=== PATIENT | male | born 1940 | race African-American/Black ===

== ENCOUNTER 2016-12-03 19:01 | Inpatient (IN) | payer MEDICARE, MEDICAID ==
[~2016-12-03] VITALS: Ht 172.7 cm; Wt 78.0 kg
[2016-12-03] MEDS ORDERED: SODIUM CHLORIDE 0.9% 500 ML IV ONE (19:21)
[2016-12-03 19:42] LABS: BASOPHILS % 0.7 % (0.0-2.0); EOSINOPHILS % 5.9 % (0.0-5.0); LYMPHOCYTES % 34.2 % (20.0-50.0); MEAN CORPUSCULAR HEMOGLOBIN 31.3 pg (28.0-32.0); MEAN CORPUSCULAR VOLUME 88.7 fL (80.0-94.0); MEAN PLATELET VOLUME 8.3 fl (7.4-10.4); MONOCYTES % 9.8 % (2.0-8.0); NEUTROPHILS % 49.4 % (40.0-76.0); PLATELET 140 x1000/uL (130-400); RED BLOOD CELL COUNT 3.83 mill/uL (4.7-6.1); RED CELL DISTRIBUTION WIDTH 13.4 % (11.6-14.6)
[2016-12-03 19:54] LABS: CARBON DIOXIDE 22 mEq/L (21-32); CHLORIDE 107 mEq/L (98-107); CREATINE KINASE 269 IU/L (39-308); ETHANOL BLOOD < 10 mg/dL; TROPONIN I < 0.02 ng/mL (0.00-0.04)
[2016-12-03] MEDS ORDERED: ASPIRIN 325MG EC TABLET PO ONE (21:15)
[2016-12-03 21:20] LABS: T4 FREE 0.74 ng/dL (0.76-1.46)
[2016-12-04] VITALS (7 sets, daily range): BP systolic 127–153; BP diastolic 63–79
[2016-12-04 00:50] LABS: CLARITY URINE CLEAR (CLEAR); COLOR URINE YELLOW (YELLOW); GLUCOSE URINE NEGATIVE (NEGATIVE); KETONES URINE NEGATIVE (NEGATIVE); LEUKOCYTE ESTERASE URINE NEGATIVE (NEGATIVE); NITRITE URINE NEGATIVE (NEGATIVE); OCCULT BLOOD URINE NEGATIVE (NEGATIVE); PH URINE 5.5 (4.5-8.0); PROTEIN URINE TRACE (NEGATIVE); SPECIFIC GRAVITY URINE 1.012 (1.005-1.030); UROBILINOGEN URINE 0.2 E.U./dL (0.2-1.0)
[2016-12-04 01:03] LABS: *AMPHETAMINES SCREEN URINE NEGATIVE (NEGATIVE); *BARBITURATES SCREEN URINE NEGATIVE (NEGATIVE); *BENZODIAZEPINES SCREEN URINE NEGATIVE (NEGATIVE); *COCAINE SCREEN URINE NEGATIVE (NEGATIVE); CANNABINOID URINE SCREEN NEGATIVE (NEGATIVE); METHADONE URINE SCREEN NEGATIVE (NEGATIVE); OPIATES URINE SCREEN NEGATIVE (NEGATIVE); PHENCYCLIDINE URINE SCREEN NEGATIVE (NEGATIVE)
[2016-12-04] MEDS ORDERED: ONDANSETRON HCL 4MG/2ML VIAL IV PRN (01:45)
[2016-12-04] MEDS ORDERED: DEXTROSE 50% WATER 50ML SYRINGE IV PRN (01:45)
[2016-12-04] MEDS ORDERED: SODIUM CHLORIDE 0.9% INJ 3ML FLUSH IVF SCH (01:45)
[2016-12-04 02:37] LABS: BASOPHILS % 0.4 % (0.0-2.0); EOSINOPHILS % 0.8 % (0.0-5.0); HEMATOCRIT. 35.8 % (42.0-52.0); HEMOGLOBIN. 12.3 g/dL (14.0-18.0); LYMPHOCYTES % 26.5 % (20.0-50.0); MEAN CORPUSCULAR HEMOGLOBIN 30.7 pg (28.0-32.0); MEAN CORPUSCULAR VOLUME 89.6 fL (80.0-94.0); MEAN PLATELET VOLUME 8.7 fl (7.4-10.4); MONOCYTES % 6.4 % (2.0-8.0); NEUTROPHILS % 65.9 % (40.0-76.0); PLATELET 138 x1000/uL (130-400); RED CELL DISTRIBUTION WIDTH 12.8 % (11.6-14.6)
[2016-12-04 02:51] LABS: CARBON DIOXIDE 26 mEq/L (21-32); CHLORIDE 108 mEq/L (98-107); CREATINE KINASE 244 IU/L (39-308); CREATINE KINASE MB FRACTION 2.7 ng/mL (0.5-3.6); TROPONIN I < 0.02 ng/mL (0.00-0.04)
[2016-12-04] MEDS: SODIUM CHLORIDE 0.9% 1,000 ML IV SCH ×2 (03:25→17:34)
[2016-12-04] MEDS: BLOOD SUGAR DIAGNOSTIC STRIP TEST SCH ×4 (05:38→21:22)
[2016-12-04] MEDS: INSULIN LISPRO 100 UNITS/ML SUBCUT SCH ×4 (05:47→21:00)
[2016-12-04] MEDS: SODIUM CHLORIDE 0.9% INJ 3ML FLUSH IVF SCH ×2 (05:47→12:19)
[2016-12-04] MEDS: MORPHINE SULFATE 2 MG/ML CPJ (NOT FOR IM USE) IV PRN ×2 (06:39→13:12)
[2016-12-04] MEDS: ASPIRIN 81MG TABLET PO SCH (09:13)
[2016-12-04] MEDS: AMLODIPINE 5MG TABLET PO SCH (09:15)
[2016-12-04 10:21] LABS: CREATINE KINASE 216 IU/L (39-308); CREATINE KINASE MB FRACTION 2.5 ng/mL (0.5-3.6); TROPONIN I < 0.02 ng/mL (0.00-0.04)
[2016-12-04] MEDS ORDERED: INFLUENZA VIRUS VACCINE 0.5ML SYR IM ONE (12:00)
[2016-12-04] MEDS ORDERED: PNEUMOCOCCAL 23-VAL P-SAC VAC 0.5 ML IM ONE (12:00)
[2016-12-05] VITALS: BP 149/79
[2016-12-05 04:00] VITALS: BP 152/84
[2016-12-05] MEDS: INSULIN LISPRO 100 UNITS/ML SUBCUT SCH (06:52)
[2016-12-05] MEDS: SODIUM CHLORIDE 0.9% INJ 3ML FLUSH IVF SCH ×2 (06:55→06:56)
[2016-12-05 08:00] VITALS: BP 168/82
[2016-12-05] MEDS: ASPIRIN 81MG TABLET PO SCH (09:07)
[2016-12-05] MEDS: AMLODIPINE 5MG TABLET PO SCH (09:07)
[2016-12-05] MEDS ORDERED: SODIUM CHLORIDE 0.9% 1,000 ML IV SCH (10:15)
[2016-12-05] MEDS ORDERED: REGADENOSON 0.4 MG/5 ML IV NR (10:15)
[2016-12-05 12:00] VITALS: BP 171/83
[2016-12-05] MEDS ORDERED: REGADENOSON 0.4 MG/5 ML IV ONE (12:33)
[2016-12-05 16:00] VITALS: BP 153/81
[2016-12-05 16:35] LABS: CREATINE KINASE 160 IU/L (39-308); CREATINE KINASE MB FRACTION 1.6 ng/mL (0.5-3.6); TROPONIN I < 0.02 ng/mL (0.00-0.04)
[2016-12-05 16:39] LABS: T4 FREE 0.73 ng/dL (0.76-1.46)
[2016-12-05 17:13] VITALS: BP 153/81
[2016-12-05] MEDS ORDERED: ENOXAPARIN 30MG/0.3ML SYR SUBCUT SCH (20:00)
[2016-12-06] MEDS ORDERED: ASPIRIN 81MG TABLET PO SCH (09:00)
== END 2016-12-05 18:20 | disposition home or self-care (01) | DRG 74 ==
LOC: ER 19:01 → 8WST 22:42 → ENRESERV 22:55 → 8WST 12-04 00:50
PROVIDERS: ADMIT Hospitalist; ATTEND Hospitalist
DX: G90.8 Other disorders of autonomic nervous system (principal); N17.9 Acute kidney failure, unspecified; E11.649 Type 2 diabetes mellitus with hypoglycemia without coma; D64.9 Anemia, unspecified; R55 Syncope and collapse; M94.0 Chondrocostal junction syndrome [Tietze]; R07.9 Chest pain, unspecified; E78.5 Hyperlipidemia, unspecified; I10 Essential (primary) hypertension
CPT/HCPCS: 36415; 70450; 71010; 78452; 80048; 80053; 80061; 80305; 81001; 82550; 82553; 82962; 83036; 83880; 84439; 84443; 84481; 84484; 85025; 85379; 93005; 93017; 93306; 96360; 96361; 99285; A9500; G0482; J1815; J2270; J2785; J7030; J7040

== ENCOUNTER 2018-11-07 09:21 | Inpatient (IN) | payer MEDICARE, MEDICAID ==
[~2018-11-07] VITALS: Ht 167.6 cm; Wt 79.8 kg
[2018-11-07] MEDS ORDERED: TETANUS, DIPHTHERIA, PERTUSSIS VAC/PF 0.5ML (>7YR OLD) IM ONE (10:45)
[2018-11-07] MEDS ORDERED: ACETAMINOPHEN WITH CODEINE 300/30MG TABLET PO ONE (10:45)
[2018-11-07 12:03] LABS: BASOPHILS % 0.5 % (0.0-2.0); EOSINOPHILS % 1.1 % (0.0-5.0); HEMATOCRIT. 28.3 % (42.0-52.0); HEMOGLOBIN. 9.8 g/dL (14.0-18.0); LYMPHOCYTES % 14.7 % (20.0-50.0); MEAN CORPUSCULAR HEMOGLOBIN 31.7 pg (28.0-32.0); MEAN CORPUSCULAR VOLUME 91.2 fL (80.0-94.0); MEAN PLATELET VOLUME 9.5 fl (7.4-10.4); MONOCYTES % 9.2 % (2.0-8.0); NEUTROPHILS % 74.5 % (40.0-76.0); PLATELET 136 x1000/uL (130-400)
[2018-11-07 12:11] LABS: CHLORIDE 103 mEq/L (98-107); PROTHROMBIN TIME 10.7 sec (9.6-11.0)
[2018-11-07] MEDS ORDERED: HYDROCODONE/ACETAMINOPHEN 5/325MG TABLET PO ONE (14:30)
[2018-11-07] MEDS ORDERED: FUROSEMIDE 40MG/4ML VIAL IVP ONE (15:30)
[2018-11-07] MEDS ORDERED: ASPIRIN 81MG TABLET PO ONE (15:30)
[2018-11-07 16:45] VITALS: BP 142/64
[2018-11-07 17:00] VITALS: BP 142/64
[2018-11-07] MEDS ORDERED: GUAIFENESIN 200MG/10ML SUGAR FREE UDC PO PRN (19:00)
[2018-11-07] MEDS ORDERED: ACETAMINOPHEN 650MG/20.3ML UDC GT PRN (19:00)
[2018-11-07] MEDS ORDERED: DEXTROSE 50% WATER 50ML SYRINGE IV PRN (19:00)
[2018-11-07] MEDS ORDERED: AMLO10TA4 MT (19:00)
[2018-11-07] MEDS ORDERED: DULO30CA52 MT (19:00)
[2018-11-07] MEDS ORDERED: HYDR-4135 PO (19:00)
[2018-11-07] MEDS ORDERED: DOCUSATE SODIUM 100MG CAPSULE PO PRN (19:00)
[2018-11-07] MEDS ORDERED: ASPI-1393 PO (19:00)
[2018-11-07] MEDS ORDERED: COR6 MT (19:00)
[2018-11-07] MEDS ORDERED: MECL-109 PO (19:00)
[2018-11-07] MEDS ORDERED: ACETAMINOPHEN 650MG SUPP PR PRN (19:00)
[2018-11-07] MEDS ORDERED: ONDANSETRON HCL 4MG/2ML INJ IV PRN (19:00)
[2018-11-07] MEDS ORDERED: PREG75CA MT (19:00)
[2018-11-07] MEDS: ACETAMINOPHEN 325MG TABLET PO PRN (20:11)
[2018-11-07 20:38] VITALS: BP 165/81
[2018-11-07] MEDS: FUROSEMIDE 40MG TABLET PO SCH ×2 (21:00→21:22)
[2018-11-07] MEDS ORDERED: INSULIN LISPRO 100 UNITS/ML SUBCUT SCH (21:00)
[2018-11-07] MEDS ORDERED: BLOOD SUGAR DIAGNOSTIC STRIP TEST SCH (21:00)
[2018-11-07] MEDS: HYDROCODONE/ACETAMINOPHEN 5/325MG TABLET PO PRN (21:19)
[2018-11-07] MEDS: ATORVASTATIN CALCIUM 20MG TABLET PO SCH (21:20)
[2018-11-07] MEDS: PREGABALIN 75MG CAPSULE PO SCH (21:20)
[2018-11-07] MEDS: CARVEDILOL 6.25 MG TABLET PO SCH (21:22)
[2018-11-07] MEDS: ENOXAPARIN 30MG/0.3ML SYR SUBCUT SCH (21:22)
[2018-11-07] MEDS: FAMOTIDINE 20MG TABLET PO SCH (21:29)
[2018-11-07] MEDS: BLOOD SUGAR DIAGNOSTIC STRIP TEST SCH (21:29)
[2018-11-07] MEDS: INSULIN LISPRO 100 UNITS/ML SUBCUT SCH (21:55)
[2018-11-07] MEDS ORDERED: DIPHENHYDRAMINE 25MG CAPSULE PO PRN ×2 (22:15)
[2018-11-07 23:43] LABS: CREATINE KINASE 121 IU/L (39-308)
[2018-11-07 23:46] LABS: CREATINE KINASE MB FRACTION 2.1 ng/mL (0.5-3.6)
[2018-11-08] VITALS (8 sets, daily range): BP systolic 107–160; BP diastolic 60–76
[2018-11-08] MEDS: BLOOD SUGAR DIAGNOSTIC STRIP TEST SCH ×4 (06:24→21:29)
[2018-11-08] MEDS: INSULIN LISPRO 100 UNITS/ML SUBCUT SCH ×4 (07:45→21:26)
[2018-11-08] MEDS: FUROSEMIDE 40MG TABLET PO SCH (09:11)
[2018-11-08] MEDS: ASPIRIN 81MG TABLET PO SCH (09:11)
[2018-11-08] MEDS: CARVEDILOL 6.25 MG TABLET PO SCH ×2 (09:12→21:27)
[2018-11-08] MEDS: ACETAMINOPHEN 325MG TABLET PO PRN (09:17)
[2018-11-08 10:24] LABS: BASOPHILS % 0.3 % (0.0-2.0); EOSINOPHILS % 0.8 % (0.0-5.0); HEMATOCRIT. 27.3 % (42.0-52.0); HEMOGLOBIN. 9.3 g/dL (14.0-18.0); LYMPHOCYTES % 13.4 % (20.0-50.0); MEAN CORPUSCULAR HEMOGLOBIN 31.3 pg (28.0-32.0); MEAN CORPUSCULAR VOLUME 91.8 fL (80.0-94.0); MEAN PLATELET VOLUME 10.1 fl (7.4-10.4); MONOCYTES % 10.3 % (2.0-8.0); NEUTROPHILS % 75.2 % (40.0-76.0); PLATELET 139 x1000/uL (130-400); RED BLOOD CELL COUNT 2.98 mill/uL (4.7-6.1); RED CELL DISTRIBUTION WIDTH 13.7 % (11.6-14.6)
[2018-11-08 10:44] LABS: CHLORIDE 102 mEq/L (98-107)
[2018-11-08 10:51] LABS: PHOSPHORUS 4.1 mg/dL (2.5-4.9)
[2018-11-08 10:52] LABS: LDL CHOLESTEROL 37 mg/dL (5-100)
[2018-11-08 10:54] LABS: CREATINE KINASE 108 IU/L (39-308); CREATINE KINASE MB FRACTION 1.3 ng/mL (0.5-3.6); HDL CHOLESTEROL 41 mg/dL (40-59)
[2018-11-08] MEDS ORDERED: SODIUM POLYSTYRENE SULFONATE 15 G/60 ML BOT PO NR (14:30)
[2018-11-08] MEDS: HYDRALAZINE HCL 50MG TABLET PO SCH ×2 (15:07→21:27)
[2018-11-08] MEDS: DOCUSATE SODIUM 100MG CAPSULE PO SCH (17:45)
[2018-11-08] MEDS: FUROSEMIDE 40MG/4ML VIAL IVP SCH (17:47)
[2018-11-08] MEDS: CITRIC ACID/SODIUM CITRATE SOLN 30ML UDC PO SCH (17:57)
[2018-11-08] MEDS: INSULIN GLARGINE UD 100 UNITS/ML SYR SUBCUT SCH (17:59)
[2018-11-08] MEDS: FAMOTIDINE 20MG TABLET PO SCH (19:51)
[2018-11-08] MEDS: PREGABALIN 75MG CAPSULE PO SCH (21:26)
[2018-11-08] MEDS: ENOXAPARIN 30MG/0.3ML SYR SUBCUT SCH (21:27)
[2018-11-08] MEDS: ATORVASTATIN CALCIUM 20MG TABLET PO SCH (21:27)
[2018-11-09] VITALS (7 sets, daily range): BP systolic 117–182; BP diastolic 48–69
[2018-11-09 03:05] LABS: CLARITY URINE CLOUDY (CLEAR); COLOR URINE YELLOW (YELLOW); KETONES URINE NEGATIVE (NEGATIVE); LEUKOCYTE ESTERASE URINE NEGATIVE (NEGATIVE); NITRITE URINE NEGATIVE (NEGATIVE); OCCULT BLOOD URINE NEGATIVE (NEGATIVE); PROTEIN URINE 3+ (NEGATIVE); UROBILINOGEN URINE 0.2 E.U./dL (0.2-1.0)
[2018-11-09 03:13] LABS: *AMPHETAMINES SCREEN URINE NEGATIVE (NEGATIVE); *BENZODIAZEPINES SCREEN URINE NEGATIVE (NEGATIVE); *COCAINE SCREEN URINE NEGATIVE (NEGATIVE)
[2018-11-09 03:14] LABS: *BARBITURATES SCREEN URINE NEGATIVE (NEGATIVE); CANNABINOID URINE SCREEN NEGATIVE (NEGATIVE); METHADONE URINE SCREEN NEGATIVE (NEGATIVE); OPIATES URINE SCREEN PRESUMTIVE POSITIVE (NEGATIVE); PHENCYCLIDINE URINE SCREEN NEGATIVE (NEGATIVE)
[2018-11-09] MEDS: BLOOD SUGAR DIAGNOSTIC STRIP TEST SCH ×4 (06:26→21:00)
[2018-11-09] MEDS: FUROSEMIDE 40MG/4ML VIAL IVP SCH ×2 (06:41→17:42)
[2018-11-09 06:53] LABS: BASOPHILS % 0.3 % (0.0-2.0); HEMATOCRIT. 27.1 % (42.0-52.0); HEMOGLOBIN. 9.5 g/dL (14.0-18.0); LYMPHOCYTES % 19.7 % (20.0-50.0); MEAN CORPUSCULAR HEMOGLOBIN 31.8 pg (28.0-32.0); MEAN PLATELET VOLUME 10.5 fl (7.4-10.4); MONOCYTES % 9.8 % (2.0-8.0); NEUTROPHILS % 68.2 % (40.0-76.0); PLATELET 138 x1000/uL (130-400); RED BLOOD CELL COUNT 2.98 mill/uL (4.7-6.1); RED CELL DISTRIBUTION WIDTH 13.3 % (11.6-14.6)
[2018-11-09] MEDS: INSULIN LISPRO 100 UNITS/ML SUBCUT SCH ×4 (07:31→21:23)
[2018-11-09] MEDS: CITRIC ACID/SODIUM CITRATE SOLN 30ML UDC PO SCH ×2 (08:28→17:42)
[2018-11-09] MEDS: FAMOTIDINE 20MG TABLET PO SCH (08:28)
[2018-11-09] MEDS: CARVEDILOL 6.25 MG TABLET PO SCH ×2 (08:29→20:54)
[2018-11-09] MEDS: HYDRALAZINE HCL 50MG TABLET PO SCH (08:29)
[2018-11-09] MEDS: DOCUSATE SODIUM 100MG CAPSULE PO SCH ×2 (08:29→17:42)
[2018-11-09] MEDS: ASPIRIN 81MG TABLET PO SCH (08:29)
[2018-11-09] MEDS: INSULIN GLARGINE UD 100 UNITS/ML SYR SUBCUT SCH (10:01)
[2018-11-09] MEDS: HYDROCODONE/ACETAMINOPHEN 5/325MG TABLET PO PRN ×2 (10:07→18:02)
[2018-11-09] MEDS: ENOXAPARIN 30MG/0.3ML SYR SUBCUT SCH (20:52)
[2018-11-09] MEDS: HYDRALAZINE HCL 100MG TABLET PO SCH (20:53)
[2018-11-09] MEDS: ATORVASTATIN CALCIUM 20MG TABLET PO SCH (20:53)
[2018-11-09] MEDS: PREGABALIN 75MG CAPSULE PO SCH (23:35)
[2018-11-10] VITALS: BP 142/60
[2018-11-10 04:43] VITALS: BP 162/73
[2018-11-10] MEDS: FUROSEMIDE 40MG/4ML VIAL IVP SCH ×2 (06:41→17:52)
[2018-11-10] MEDS: BLOOD SUGAR DIAGNOSTIC STRIP TEST SCH ×4 (06:50→20:39)
[2018-11-10 07:10] LABS: BASOPHILS % 0.4 % (0.0-2.0); EOSINOPHILS % 3.5 % (0.0-5.0); HEMATOCRIT. 26.8 % (42.0-52.0); HEMOGLOBIN. 9.3 g/dL (14.0-18.0); LYMPHOCYTES % 26.3 % (20.0-50.0); MEAN CORPUSCULAR HEMOGLOBIN 31.2 pg (28.0-32.0); MEAN CORPUSCULAR VOLUME 90.1 fL (80.0-94.0); MEAN PLATELET VOLUME 10.2 fl (7.4-10.4); MONOCYTES % 11.6 % (2.0-8.0); NEUTROPHILS % 58.2 % (40.0-76.0); PLATELET 152 x1000/uL (130-400); RED BLOOD CELL COUNT 2.97 mill/uL (4.7-6.1)
[2018-11-10] MEDS: INSULIN LISPRO 100 UNITS/ML SUBCUT SCH ×4 (07:30→20:41)
[2018-11-10 08:00] VITALS: BP_SYST 159; BP_SYST 160; BP_DIAS 67
[2018-11-10] MEDS: DOCUSATE SODIUM 100MG CAPSULE PO SCH ×2 (09:00→17:00)
[2018-11-10] MEDS: HYDRALAZINE HCL 100MG TABLET PO SCH ×2 (09:08→20:39)
[2018-11-10] MEDS: ASPIRIN 81MG TABLET PO SCH (09:08)
[2018-11-10] MEDS: CARVEDILOL 6.25 MG TABLET PO SCH ×2 (09:08→20:39)
[2018-11-10] MEDS: CITRIC ACID/SODIUM CITRATE SOLN 30ML UDC PO SCH ×2 (09:08→17:52)
[2018-11-10] MEDS: FAMOTIDINE 20MG TABLET PO SCH (09:08)
[2018-11-10] MEDS: INSULIN GLARGINE UD 100 UNITS/ML SYR SUBCUT SCH (11:03)
[2018-11-10 12:00] VITALS: BP 126/56
[2018-11-10] MEDS ORDERED: POTASSIUM CHLORIDE 20MEQ TABLET SR PO SCH (12:00)
[2018-11-10] MEDS: HYDROCODONE/ACETAMINOPHEN 5/325MG TABLET PO PRN (13:23)
[2018-11-10 15:11] VITALS: BP 159/67
[2018-11-10 19:58] VITALS: BP 145/52
[2018-11-10] MEDS: ENOXAPARIN 30MG/0.3ML SYR SUBCUT SCH (20:38)
[2018-11-10] MEDS: PREGABALIN 75MG CAPSULE PO SCH (20:39)
[2018-11-10] MEDS: ATORVASTATIN CALCIUM 20MG TABLET PO SCH (20:39)
[2018-11-11 00:14] VITALS: BP 143/51
[2018-11-11 04:02] VITALS: BP 142/52
[2018-11-11] MEDS: FUROSEMIDE 40MG/4ML VIAL IVP SCH (06:37)
[2018-11-11] MEDS: BLOOD SUGAR DIAGNOSTIC STRIP TEST SCH ×2 (06:37→12:20)
[2018-11-11 06:54] LABS: BASOPHILS % 0.3 % (0.0-2.0); EOSINOPHILS % 3.1 % (0.0-5.0); HEMATOCRIT. 28.9 % (42.0-52.0); LYMPHOCYTES % 28.3 % (20.0-50.0); MEAN CORPUSCULAR HEMOGLOBIN 31.4 pg (28.0-32.0); MEAN CORPUSCULAR VOLUME 91.2 fL (80.0-94.0); MEAN PLATELET VOLUME 9.9 fl (7.4-10.4); MONOCYTES % 10.1 % (2.0-8.0); NEUTROPHILS % 58.2 % (40.0-76.0); PLATELET 159 x1000/uL (130-400); RED BLOOD CELL COUNT 3.17 mill/uL (4.7-6.1); RED CELL DISTRIBUTION WIDTH 13.3 % (11.6-14.6)
[2018-11-11 06:55] LABS: PHOSPHORUS 4.8 mg/dL (2.5-4.9)
[2018-11-11] MEDS: INSULIN LISPRO 100 UNITS/ML SUBCUT SCH ×2 (06:59→13:25)
[2018-11-11 08:02] VITALS: BP 158/62
[2018-11-11] MEDS: FAMOTIDINE 20MG TABLET PO SCH (08:53)
[2018-11-11] MEDS: ASPIRIN 81MG TABLET PO SCH (08:53)
[2018-11-11] MEDS: HYDRALAZINE HCL 100MG TABLET PO SCH (08:53)
[2018-11-11] MEDS: DOCUSATE SODIUM 100MG CAPSULE PO SCH (08:53)
[2018-11-11] MEDS: CARVEDILOL 6.25 MG TABLET PO SCH (08:53)
[2018-11-11] MEDS ORDERED: SPIRONOLACTONE 25MG TABLET PO SCH (09:00)
[2018-11-11] MEDS: INSULIN GLARGINE UD 100 UNITS/ML SYR SUBCUT SCH (11:12)
[2018-11-11 12:13] VITALS: BP 153/58
[2018-11-11] MEDS ORDERED: ATOR20TA PO (12:37)
[2018-11-11] MEDS ORDERED: SPIR25TA PO (12:37)
[2018-11-11] MEDS ORDERED: LANTUSUD SUBCUT (12:37)
[2018-11-11] MEDS ORDERED: HYDR100T26 PO (12:37)
[2018-11-11] MEDS ORDERED: INSLIS SUBCUT (12:37)
[2018-11-11] MEDS ORDERED: FURO-151 MT (12:37)
[2018-11-11 14:09] VITALS: BP 153/58
[2018-11-11 16:14] VITALS: BP 149/63
== END 2018-11-11 16:40 | disposition home health service (06) | DRG 291 ==
LOC: ER 09:21 → 6WST 13:36 → ENRESERV 14:48 → 6WST 16:57
PROVIDERS: ADMIT Family Medicine; ATTEND Family Medicine
DX: I13.0 Hypertensive heart and chronic kidney disease with heart failure and stage 1 through stage 4 chronic kidney disease, or unspecified chronic kidney disease (principal); I50.33 Acute on chronic diastolic (congestive) heart failure; E87.1 Hypo-osmolality and hyponatremia; N18.4 Chronic kidney disease, stage 4 (severe); E87.2 Acidosis; I95.1 Orthostatic hypotension; D63.1 Anemia in chronic kidney disease; E04.2 Nontoxic multinodular goiter; E11.22 Type 2 diabetes mellitus with diabetic chronic kidney disease; E03.9 Hypothyroidism, unspecified; E11.319 Type 2 diabetes mellitus with unspecified diabetic retinopathy without macular edema; E11.40 Type 2 diabetes mellitus with diabetic neuropathy, unspecified; E11.51 Type 2 diabetes mellitus with diabetic peripheral angiopathy without gangrene; E78.00 Pure hypercholesterolemia, unspecified; E78.5 Hyperlipidemia, unspecified; I25.10 Atherosclerotic heart disease of native coronary artery without angina pectoris; K21.9 Gastro-esophageal reflux disease without esophagitis; S00.81XA Abrasion of other part of head, initial encounter; W01.0XXA Fall on same level from slipping, tripping and stumbling without subsequent striking against object, initial encounter; M10.9 Gout, unspecified; E87.6 Hypokalemia; M19.90 Unspecified osteoarthritis, unspecified site; Z79.899 Other long term (current) drug therapy; Z82.49 Family history of ischemic heart disease and other diseases of the circulatory system; Z86.73 Personal history of transient ischemic attack (TIA), and cerebral infarction without residual deficits; Z79.82 Long term (current) use of aspirin; Z86.718 Personal history of other venous thrombosis and embolism; Z79.84 Long term (current) use of oral hypoglycemic drugs
CPT/HCPCS: 36415; 70486; 71045; 76770; 80048; 80061; 80305; 81003; 82533; 82550; 82553; 82962; 83735; 84100; 84443; 84484; 86850; 86900; 93005; 93970; 96374; 97161; 99291; J1650; J1815; J1940

== ENCOUNTER 2019-02-03 03:49 | Inpatient (IN) | payer MEDICARE, MEDICAID ==
[~2019-02-03] VITALS: Ht 167.6 cm; Wt 76.7 kg
[~2019-02-03 03:49] MED LIST: AMLO10TA4 MT; ASPI-1393 PO; ATOR20TA PO; COR6 MT; DULO30CA52 MT; FURO-151 MT; HYDR100T26 PO; INSLIS SUBCUT; LANTUSUD SUBCUT; MECL-109 PO; PREG75CA MT; SPIR25TA PO
[2019-02-03] MEDS ORDERED: FUROSEMIDE 40MG/4ML VIAL IV ONE (04:45)
[2019-02-03] MEDS ORDERED: NITROGLYCERIN OINT 1GM/INCH UDPKT TD ONE (04:45)
[2019-02-03 05:28] LABS: BASOPHILS % 0.5 % (0.0-2.0); EOSINOPHILS % 1.3 % (0.0-5.0); HEMATOCRIT. 28.2 % (42.0-52.0); HEMOGLOBIN. 9.6 g/dL (14.0-18.0); LYMPHOCYTES % 7.8 % (20.0-50.0); MEAN CORPUSCULAR HEMOGLOBIN 30.3 pg (28.0-32.0); MEAN CORPUSCULAR VOLUME 88.9 fL (80.0-94.0); MEAN PLATELET VOLUME 8.4 fl (7.4-10.4); MONOCYTES % 7.5 % (2.0-8.0); NEUTROPHILS % 82.9 % (40.0-76.0); PLATELET 211 x1000/uL (130-400); RED BLOOD CELL COUNT 3.16 mill/uL (4.7-6.1); RED CELL DISTRIBUTION WIDTH 16.1 % (11.6-14.6)
[2019-02-03 05:34] LABS: CHLORIDE 103 mEq/L (98-107)
[2019-02-03 08:30] VITALS: BP 160/68
[2019-02-03] MEDS ORDERED: ONDANSETRON HCL 4MG/2ML INJ IV PRN (08:45)
[2019-02-03] MEDS ORDERED: ACETAMINOPHEN 325MG TABLET PO PRN (08:45)
[2019-02-03] MEDS ORDERED: CLONIDINE 0.1MG TABLET PO PRN (08:45)
[2019-02-03] MEDS ORDERED: DIPHENHYDRAMINE 50MG/ML VIAL IV PRN (08:45)
[2019-02-03] MEDS ORDERED: IPRATROPIUM/ALBUTEROL 0.5-3(2.5)MG/3ML NEB HHN PRN (08:45)
[2019-02-03 09:30] VITALS: BP 148/87
[2019-02-03 09:38] LABS: PHOSPHORUS 3.4 mg/dL (2.5-4.9)
[2019-02-03] MEDS ORDERED: INSU3INS8 SUBCUT (11:03)
[2019-02-03] MEDS ORDERED: INSU100I24 SQ (11:03)
[2019-02-03] MEDS ORDERED: DULA1.5P SQ (11:03)
[2019-02-03] MEDS ORDERED: HYDR100T26 MT (11:03)
[2019-02-03] MEDS ORDERED: ERGO2000 PO (11:03)
[2019-02-03 12:00] VITALS: BP 149/64
[2019-02-03] MEDS ORDERED: INSULIN LISPRO 100 UNITS/ML SUBCUT SCH (12:15)
[2019-02-03] MEDS ORDERED: MECLIZINE 25MG TABLET PO SCH (13:00)
[2019-02-03] MEDS ORDERED: DEXTROSE 50% WATER 50ML SYRINGE IV PRN (13:15)
[2019-02-03] MEDS: ASPIRIN 81MG EC TABLET PO SCH (14:26)
[2019-02-03] MEDS: ENOXAPARIN 30MG/0.3ML SYR SUBCUT SCH (14:28)
[2019-02-03] MEDS: SPIRONOLACTONE 25MG TABLET PO SCH (14:29)
[2019-02-03] MEDS: AMLODIPINE 10MG TABLET PO SCH (14:30)
[2019-02-03] MEDS: FUROSEMIDE 40MG/4ML VIAL IVP SCH ×2 (14:30→18:48)
[2019-02-03] MEDS: FAMOTIDINE 20MG/2ML VIAL IV SCH (14:45)
[2019-02-03 16:00] VITALS: BP 154/65
[2019-02-03] MEDS: BLOOD SUGAR DIAGNOSTIC STRIP TEST SCH ×2 (16:45→21:24)
[2019-02-03] MEDS ORDERED: CARVEDILOL 6.25 MG TABLET PO SCH (17:00)
[2019-02-03] MEDS: INSULIN LISPRO (LOW DOSE) 100 UNITS/ML SUBCUT SCH ×2 (17:15→21:40)
[2019-02-03] MEDS: HYDRALAZINE HCL 100MG TABLET PO SCH (18:47)
[2019-02-03 20:00] VITALS: BP 163/69
[2019-02-03] MEDS ORDERED: AMLODIPINE 5MG TABLET PO SCH (21:00)
[2019-02-03] MEDS: ATORVASTATIN CALCIUM 20MG TABLET PO SCH (21:24)
[2019-02-03] MEDS: CARVEDILOL 3.125 MG TABLET PO SCH (21:24)
[2019-02-04] MEDS: IPRATROPIUM/ALBUTEROL 0.5-3(2.5)MG/3ML NEB HHN SCH ×4 (01:39→21:18)
[2019-02-04 08:00] VITALS: BP 148/65
[2019-02-04] MEDS ORDERED: DULOXETINE HCL 30MG DR CAPSULE PO SCH (09:00)
[2019-02-04] MEDS ORDERED: PREGABALIN 75MG CAPSULE PO SCH (09:00)
[2019-02-04] MEDS: SPIRONOLACTONE 25MG TABLET PO SCH (09:17)
[2019-02-04] MEDS: FAMOTIDINE 20MG/2ML VIAL IV SCH (09:17)
[2019-02-04] MEDS: FUROSEMIDE 40MG/4ML VIAL IVP SCH ×2 (09:17→17:58)
[2019-02-04] MEDS: HYDRALAZINE HCL 100MG TABLET PO SCH ×2 (09:19→21:54)
[2019-02-04] MEDS: AMLODIPINE 10MG TABLET PO SCH (09:19)
[2019-02-04] MEDS: ASPIRIN 81MG EC TABLET PO SCH (09:20)
[2019-02-04] MEDS: CARVEDILOL 3.125 MG TABLET PO SCH (09:20)
[2019-02-04] MEDS: ENOXAPARIN 30MG/0.3ML SYR SUBCUT SCH (09:20)
[2019-02-04] MEDS ORDERED: BISACODYL 10MG SUPP PR SCH (09:30)
[2019-02-04 10:00] LABS: CHLORIDE 104 mEq/L (98-107)
[2019-02-04 10:06] LABS: PHOSPHORUS 4.2 mg/dL (2.5-4.9)
[2019-02-04 10:07] LABS: LDL CHOLESTEROL 33 mg/dL (5-100)
[2019-02-04 10:09] LABS: HDL CHOLESTEROL 46 mg/dL (40-59)
[2019-02-04 10:24] LABS: HEMATOCRIT. 27.7 % (42.0-52.0); HEMOGLOBIN. 9.4 g/dL (14.0-18.0); MEAN CORPUSCULAR VOLUME 88.7 fL (80.0-94.0); MEAN PLATELET VOLUME 8.7 fl (7.4-10.4); PLATELET 220 x1000/uL (130-400); RED BLOOD CELL COUNT 3.12 mill/uL (4.7-6.1); RED CELL DISTRIBUTION WIDTH 15.9 % (11.6-14.6)
[2019-02-04] MEDS: INSULIN GLARGINE UD 100 UNITS/ML SYR SUBCUT SCH (10:44)
[2019-02-04] MEDS: BLOOD SUGAR DIAGNOSTIC STRIP TEST SCH ×4 (11:45→21:55)
[2019-02-04 12:00] VITALS: BP 143/59
[2019-02-04] MEDS: INSULIN LISPRO (LOW DOSE) 100 UNITS/ML SUBCUT SCH ×4 (12:15→21:56)
[2019-02-04] MEDS: METOCLOPRAMIDE HCL 5MG TABLET PO SCH ×3 (12:23→21:53)
[2019-02-04 16:00] VITALS: BP_SYST 121; BP_SYST 129; BP_SYST 133; BP_DIAS 53; BP_DIAS 57; BP_DIAS 59
[2019-02-04 17:16] LABS: PLATELET ESTIMATE NORMAL
[2019-02-04 20:00] VITALS: BP_SYST 145; BP_SYST 146; BP_SYST 147; BP_DIAS 54; BP_DIAS 57; BP_DIAS 58
[2019-02-04] MEDS: CARVEDILOL 6.25 MG TABLET PO SCH (21:54)
[2019-02-04] MEDS: ATORVASTATIN CALCIUM 20MG TABLET PO SCH (21:55)
[2019-02-05] VITALS: BP 122/51
[2019-02-05] MEDS: IPRATROPIUM/ALBUTEROL 0.5-3(2.5)MG/3ML NEB HHN SCH ×3 (01:41→14:42)
[2019-02-05 04:00] VITALS: BP 137/60
[2019-02-05] MEDS: METOCLOPRAMIDE HCL 5MG TABLET PO SCH ×2 (06:15→15:31)
[2019-02-05] MEDS: INSULIN LISPRO (LOW DOSE) 100 UNITS/ML SUBCUT SCH ×2 (06:15→12:15)
[2019-02-05] MEDS: BLOOD SUGAR DIAGNOSTIC STRIP TEST SCH ×2 (06:15→11:45)
[2019-02-05] MEDS: FUROSEMIDE 40MG/4ML VIAL IVP SCH (06:15)
[2019-02-05 07:11] LABS: BASOPHILS % 0.4 % (0.0-2.0); EOSINOPHILS % 2.1 % (0.0-5.0); HEMATOCRIT. 26.9 % (42.0-52.0); HEMOGLOBIN. 9.3 g/dL (14.0-18.0); LYMPHOCYTES % 9.6 % (20.0-50.0); MEAN CORPUSCULAR HEMOGLOBIN 30.1 pg (28.0-32.0); MEAN CORPUSCULAR VOLUME 87.3 fL (80.0-94.0); MEAN PLATELET VOLUME 8.2 fl (7.4-10.4); MONOCYTES % 7.9 % (2.0-8.0); PLATELET 221 x1000/uL (130-400); RED BLOOD CELL COUNT 3.08 mill/uL (4.7-6.1); RED CELL DISTRIBUTION WIDTH 15.8 % (11.6-14.6)
[2019-02-05 07:17] LABS: CHLORIDE 106 mEq/L (98-107)
[2019-02-05 07:22] LABS: PHOSPHORUS 4.9 mg/dL (2.5-4.9)
[2019-02-05 08:00] VITALS: BP 138/60
[2019-02-05] MEDS: AMLODIPINE 10MG TABLET PO SCH (09:00)
[2019-02-05 12:00] VITALS: BP 144/63
[2019-02-05] MEDS ORDERED: COR6 MT (13:09)
[2019-02-05] MEDS: INSULIN GLARGINE UD 100 UNITS/ML SYR SUBCUT SCH (13:30)
[2019-02-05] MEDS: ASPIRIN 81MG EC TABLET PO SCH (15:30)
[2019-02-05] MEDS: FAMOTIDINE 20MG/2ML VIAL IV SCH (15:30)
[2019-02-05] MEDS: CARVEDILOL 6.25 MG TABLET PO SCH (15:30)
[2019-02-05] MEDS: HYDRALAZINE HCL 100MG TABLET PO SCH (15:30)
[2019-02-05] MEDS: ENOXAPARIN 30MG/0.3ML SYR SUBCUT SCH (15:30)
[2019-02-05] MEDS: SPIRONOLACTONE 25MG TABLET PO SCH (15:30)
[2019-02-05 16:00] VITALS: BP 152/64
[2019-02-05 16:17] VITALS: BP 144/63
== END 2019-02-05 17:20 | disposition home or self-care (01) | DRG 291 ==
LOC: ER 03:49 → 5WST 05:12 → EDBD 05:12 → EDBEDREQ 05:18 → EDBEDREQTM 05:18 → ENRESERV 07:35
PROVIDERS: ADMIT Internal Medicine; ATTEND Internal Medicine
DX: I13.0 Hypertensive heart and chronic kidney disease with heart failure and stage 1 through stage 4 chronic kidney disease, or unspecified chronic kidney disease (principal); I50.31 Acute diastolic (congestive) heart failure; J96.00 Acute respiratory failure, unspecified whether with hypoxia or hypercapnia; K56.7 Ileus, unspecified; N18.4 Chronic kidney disease, stage 4 (severe); N17.9 Acute kidney failure, unspecified; E11.22 Type 2 diabetes mellitus with diabetic chronic kidney disease; E11.51 Type 2 diabetes mellitus with diabetic peripheral angiopathy without gangrene; E78.5 Hyperlipidemia, unspecified; E78.00 Pure hypercholesterolemia, unspecified; E11.42 Type 2 diabetes mellitus with diabetic polyneuropathy; M10.9 Gout, unspecified; D64.9 Anemia, unspecified; I25.10 Atherosclerotic heart disease of native coronary artery without angina pectoris; E03.9 Hypothyroidism, unspecified; M81.0 Age-related osteoporosis without current pathological fracture; Z86.718 Personal history of other venous thrombosis and embolism; Z79.899 Other long term (current) drug therapy; Z82.49 Family history of ischemic heart disease and other diseases of the circulatory system; Z93.3 Colostomy status; Z79.82 Long term (current) use of aspirin; Z79.4 Long term (current) use of insulin; Z87.01 Personal history of pneumonia (recurrent)
CPT/HCPCS: 36415; 71045; 74018; 80061; 82962; 83735; 83880; 84100; 84443; 84484; 93005; 93306; 93970; 99291; J1200; J1650; J1815; J1940; J3490; J7620; J8597

== ENCOUNTER 2019-10-03 01:13 | Inpatient (IN) | payer MEDICARE, MEDICAID ==
[~2019-10-03] VITALS: Ht 167.6 cm; Wt 72.6 kg
[~2019-10-03 01:13] MED LIST changes: -ASPI-1393 PO; +ASPI-1497 PO; +DULA1.5P SQ; +ERGO2000 PO; +HYDR100T26 MT; +INSU3INS8 SUBCUT; -MECL-109 PO; -PREG75CA MT
[2019-10-03] MEDS ORDERED: AZITHROMYCIN 500 MG in DEXT 5% WATER 250 ML IV ONE (02:45)
[2019-10-03] MEDS ORDERED: CEFTRIAXONE 1 G PREMIX 50 ML IV ONE (02:45)
[2019-10-03 03:17] LABS: EOSINOPHILS % 4.1 % (0.0-5.0); HEMATOCRIT. 27.4 % (42.0-52.0); HEMOGLOBIN. 9.2 g/dL (14.0-18.0); LYMPHOCYTES % 11.8 % (20.0-50.0); MEAN CORPUSCULAR HEMOGLOBIN 28.9 pg (28.0-32.0); MEAN CORPUSCULAR VOLUME 86.2 fL (80.0-94.0); MONOCYTES % 10.2 % (2.0-8.0); NEUTROPHILS % 72.9 % (40.0-76.0); PLATELET 168 x1000/uL (130-400); RED BLOOD CELL COUNT 3.18 mill/uL (4.7-6.1); RED CELL DISTRIBUTION WIDTH 16.3 % (11.6-14.6)
[2019-10-03 03:20] LABS: CHLORIDE 103 mEq/L (98-107)
[2019-10-03 03:30] LABS: BG CARBOXYHEMOGLOBIN 0.1 % (0.5-1.5); BG DEOXYHEMOGLOBIN 3.6 % (0.0-5.0); BG FRACTION INSPIRED OXYGEN 21; BG HCO3 ACT 16.6 mmol/L (22.0-26.0); BG OXYGEN SATURATION 96.4 % (92.0-98.5); BG OXYHEMOGLOBIN 96.3 % (94.0-97.0); BG PCO2 28.3 mmHg (35.0-45.0); BG PH 7.386 (7.350-7.450); BG PO2 88.5 mmHg (75.0-100.0); BG SAMPLE SITE RIGHT RADIAL; BG VENT MODE ROOM AIR
[2019-10-03 04:48] LABS: CLARITY URINE CLEAR (CLEAR); COLOR URINE YELLOW (YELLOW); KETONES URINE NEGATIVE (NEGATIVE); LEUKOCYTE ESTERASE URINE NEGATIVE (NEGATIVE); NITRITE URINE NEGATIVE (NEGATIVE); OCCULT BLOOD URINE NEGATIVE (NEGATIVE); PROTEIN URINE 2+ (NEGATIVE); SPECIFIC GRAVITY URINE 1.019 (1.005-1.030); UROBILINOGEN URINE 0.2 E.U./dL (0.2-1.0)
[2019-10-03] MEDS ORDERED: ZOLPIDEM TARTRATE 5MG TABLET PO PRN (06:45)
[2019-10-03] MEDS ORDERED: IPRATROPIUM/ALBUTEROL 0.5-3(2.5)MG/3ML NEB ORI PRN (06:45)
[2019-10-03] MEDS ORDERED: CLONIDINE 0.1MG TABLET PO PRN (06:45)
[2019-10-03] MEDS ORDERED: DIPHENHYDRAMINE 50MG/ML VIAL IV PRN (06:45)
[2019-10-03] MEDS ORDERED: MAGNESIUM/ALUMINUM HYDROXIDE/SIMETHICONE 30ML UDC PO PRN (06:45)
[2019-10-03] MEDS ORDERED: ONDANSETRON HCL 4MG/2ML INJ IV PRN (06:45)
[2019-10-03] MEDS ORDERED: ACETAMINOPHEN 325MG TABLET PO PRN ×2 (06:45)
[2019-10-03] MEDS ORDERED: GUAIFENESIN 200MG/10ML SUGAR FREE UDC PO PRN (06:45)
[2019-10-03] MEDS ORDERED: DOCUSATE SODIUM 100MG CAPSULE PO PRN (06:45)
[2019-10-03] MEDS ORDERED: TRAMADOL 50MG TABLET PO PRN (08:35)
[2019-10-03] MEDS ORDERED: METOLAZONE 10MG TABLET PO NR (08:40)
[2019-10-03] MEDS ORDERED: ASPIRIN 325MG EC TABLET PO SCH (09:00)
[2019-10-03] MEDS ORDERED: SPIRONOLACTONE 25MG TABLET PO SCH (09:00)
[2019-10-03] MEDS ORDERED: FUROSEMIDE 40MG/4ML VIAL IVP SCH (09:00)
[2019-10-03] MEDS: ENOXAPARIN 30MG/0.3ML SYR SUBCUT SCH (09:42)
[2019-10-03] MEDS: GUAIFENESIN/DM 600MG/30MG ER TAB 12HR PO SCH (09:42)
[2019-10-03] MEDS: ZINC SULFATE 220 MG ( 50 ) CAPSULE PO SCH (09:42)
[2019-10-03] MEDS: FAMOTIDINE 20MG TABLET PO SCH (09:42)
[2019-10-03] MEDS: ASCORBIC ACID 500 MG TABLET PO SCH (09:42)
[2019-10-03] MEDS: AMLODIPINE 10MG TABLET PO SCH (12:00)
[2019-10-03] MEDS ORDERED: DEXTROSE 50% WATER 50ML SYRINGE IV PRN (12:15)
[2019-10-03] MEDS ORDERED: BISACODYL 10MG SUPP PR NR (12:45)
[2019-10-03] MEDS: BLOOD SUGAR DIAGNOSTIC STRIP TEST SCH ×3 (13:00→21:00)
[2019-10-03] MEDS ORDERED: IPRATROPIUM/ALBUTEROL 0.5-3(2.5)MG/3ML NEB ORI SCH (13:00)
[2019-10-03] MEDS: INSULIN LISPRO 100 UNITS/ML SUBCUT SCH ×3 (13:20→21:00)
[2019-10-03 13:35] LABS: HEPATITIS B SURFACE AB 41.3 mIU/mL
[2019-10-03 13:46] LABS: HEPATITIS B SURFACE ANTIGEN NEGATIVE
[2019-10-03] MEDS ORDERED: HYDRALAZINE HCL 50MG TABLET PO SCH (14:00)
[2019-10-03 14:15] LABS: HEPATITIS A AB IGM NEGATIVE (NEGATIVE)
[2019-10-03 16:23] LABS: CREATINE KINASE 76 IU/L (39-308)
[2019-10-03 16:25] LABS: CREATINE KINASE MB FRACTION 1.3 ng/mL (0.5-3.6)
[2019-10-03 16:40] LABS: INR 1.1; PARTIAL THROMBOPLASTIN TIME 31.2 sec (23.4-31.0); PROTHROMBIN TIME 11.9 sec (9.6-11.0)
[2019-10-03] MEDS ORDERED: CARVEDILOL 3.125 MG TABLET PO SCH (18:00)
[2019-10-03] MEDS: HYDRALAZINE HCL 50MG TABLET PO SCH (18:00)
[2019-10-03] MEDS: CARVEDILOL 6.25 MG TABLET PO SCH (18:39)
[2019-10-03] MEDS ORDERED: EPOETIN ALFA 10000UNITS/ML VIAL SUBCUT SCH (21:00)
[2019-10-03] MEDS: FUROSEMIDE 40MG/4ML VIAL IVP SCH (21:00)
[2019-10-03 22:00] VITALS: BP 133/57
[2019-10-04] VITALS: BP 136/57
[2019-10-04 00:38] LABS: CREATINE KINASE 103 IU/L (39-308)
[2019-10-04] MEDS: ATORVASTATIN CALCIUM 10MG TABLET PO SCH ×2 (01:09→21:29)
[2019-10-04] MEDS: GUAIFENESIN/DM 600MG/30MG ER TAB 12HR PO SCH ×3 (01:09→21:29)
[2019-10-04] MEDS: ASCORBIC ACID 500 MG TABLET PO SCH ×3 (01:10→21:28)
[2019-10-04] MEDS ORDERED: MECL-159 PO (01:59)
[2019-10-04 04:00] VITALS: BP 135/57
[2019-10-04] MEDS: HYDRALAZINE HCL 50MG TABLET PO SCH ×2 (05:10→17:22)
[2019-10-04] MEDS: CARVEDILOL 6.25 MG TABLET PO SCH ×2 (05:10→17:34)
[2019-10-04] MEDS: BLOOD SUGAR DIAGNOSTIC STRIP TEST SCH ×4 (07:40→21:29)
[2019-10-04 08:00] VITALS: BP 154/63
[2019-10-04] MEDS: INSULIN LISPRO 100 UNITS/ML SUBCUT SCH ×4 (08:10→21:00)
[2019-10-04] MEDS: ZINC SULFATE 220 MG ( 50 ) CAPSULE PO SCH (08:55)
[2019-10-04] MEDS: SPIRONOLACTONE 25MG TABLET PO SCH (08:56)
[2019-10-04] MEDS: ENOXAPARIN 30MG/0.3ML SYR SUBCUT SCH (08:56)
[2019-10-04] MEDS: FUROSEMIDE 40MG/4ML VIAL IVP SCH ×2 (08:57→21:27)
[2019-10-04] MEDS: AMLODIPINE 10MG TABLET PO SCH (08:57)
[2019-10-04] MEDS: ASPIRIN 81MG EC TABLET PO SCH (08:57)
[2019-10-04] MEDS: FAMOTIDINE 20MG TABLET PO SCH ×2 (08:57→10:11)
[2019-10-04 09:48] LABS: BASOPHILS % 1.2 % (0.0-2.0); EOSINOPHILS % 0.3 % (0.0-5.0); HEMATOCRIT. 25.4 % (42.0-52.0); HEMOGLOBIN. 8.5 g/dL (14.0-18.0); LYMPHOCYTES % 8.3 % (20.0-50.0); MEAN CORPUSCULAR VOLUME 86.6 fL (80.0-94.0); MEAN PLATELET VOLUME 9.3 fl (7.4-10.4); MONOCYTES % 7.3 % (2.0-8.0); NEUTROPHILS % 82.9 % (40.0-76.0); PLATELET 152 x1000/uL (130-400); RED BLOOD CELL COUNT 2.93 mill/uL (4.7-6.1); RED CELL DISTRIBUTION WIDTH 16.7 % (11.6-14.6)
[2019-10-04 09:53] LABS: CHLORIDE 101 mEq/L (98-107)
[2019-10-04 10:00] LABS: PHOSPHORUS 6.3 mg/dL (2.5-4.9)
[2019-10-04 12:00] VITALS: BP 133/67
[2019-10-04 15:55] VITALS: BP 132/54
[2019-10-04 20:00] VITALS: BP 139/59
[2019-10-04] MEDS ORDERED: EPOETIN ALFA 10000UNITS/ML VIAL SUBCUT NR (21:00)
[2019-10-05] VITALS: BP 134/62
[2019-10-05] MEDS: HYDRALAZINE HCL 50MG TABLET PO SCH ×2 (06:00→17:32)
[2019-10-05] MEDS: CARVEDILOL 6.25 MG TABLET PO SCH ×2 (06:00→17:32)
[2019-10-05] MEDS: BLOOD SUGAR DIAGNOSTIC STRIP TEST SCH ×4 (06:29→20:51)
[2019-10-05] MEDS: INSULIN LISPRO 100 UNITS/ML SUBCUT SCH ×5 (06:32→21:02)
[2019-10-05 08:00] VITALS: BP 129/55
[2019-10-05] MEDS: ASCORBIC ACID 500 MG TABLET PO SCH ×2 (08:42→21:01)
[2019-10-05] MEDS: GUAIFENESIN/DM 600MG/30MG ER TAB 12HR PO SCH ×2 (08:42→21:01)
[2019-10-05] MEDS: FAMOTIDINE 20MG TABLET PO SCH (08:42)
[2019-10-05] MEDS: SPIRONOLACTONE 25MG TABLET PO SCH (08:42)
[2019-10-05] MEDS: ZINC SULFATE 220 MG ( 50 ) CAPSULE PO SCH (08:43)
[2019-10-05] MEDS: FUROSEMIDE 40MG/4ML VIAL IVP SCH ×2 (08:43→21:01)
[2019-10-05] MEDS: ENOXAPARIN 30MG/0.3ML SYR SUBCUT SCH (08:43)
[2019-10-05] MEDS: AMLODIPINE 10MG TABLET PO SCH (08:43)
[2019-10-05] MEDS: ASPIRIN 81MG EC TABLET PO SCH (08:43)
[2019-10-05 12:00] VITALS: BP 136/55
[2019-10-05 12:55] LABS: BASOPHILS % 1.1 % (0.0-2.0); EOSINOPHILS % 2.9 % (0.0-5.0); HEMATOCRIT. 25.7 % (42.0-52.0); HEMOGLOBIN. 8.6 g/dL (14.0-18.0); LYMPHOCYTES % 15.5 % (20.0-50.0); MEAN CORPUSCULAR HEMOGLOBIN 28.5 pg (28.0-32.0); MEAN CORPUSCULAR VOLUME 85.2 fL (80.0-94.0); NEUTROPHILS % 66.5 % (40.0-76.0); PLATELET 155 x1000/uL (130-400); RED BLOOD CELL COUNT 3.02 mill/uL (4.7-6.1)
[2019-10-05 13:07] LABS: PHOSPHORUS 5.5 mg/dL (2.5-4.9)
[2019-10-05 16:00] VITALS: BP 132/52
[2019-10-05 20:00] VITALS: BP 137/51
[2019-10-05] MEDS: ATORVASTATIN CALCIUM 10MG TABLET PO SCH (21:01)
[2019-10-06] VITALS (15 sets, daily range): BP systolic 130–145; BP diastolic 49–74
[2019-10-06] MEDS: CARVEDILOL 6.25 MG TABLET PO SCH ×2 (05:27→18:00)
[2019-10-06] MEDS: HYDRALAZINE HCL 50MG TABLET PO SCH ×2 (05:27→18:00)
[2019-10-06 06:44] LABS: HEMATOCRIT. 25.7 % (42.0-52.0); HEMOGLOBIN. 8.7 g/dL (14.0-18.0); MEAN CORPUSCULAR HEMOGLOBIN 28.9 pg (28.0-32.0); MEAN CORPUSCULAR VOLUME 85.3 fL (80.0-94.0); MEAN PLATELET VOLUME 8.6 fl (7.4-10.4); PLATELET 159 x1000/uL (130-400); RED BLOOD CELL COUNT 3.01 mill/uL (4.7-6.1); RED CELL DISTRIBUTION WIDTH 15.6 % (11.6-14.6)
[2019-10-06] MEDS: INSULIN LISPRO 100 UNITS/ML SUBCUT SCH ×4 (06:57→21:00)
[2019-10-06] MEDS: BLOOD SUGAR DIAGNOSTIC STRIP TEST SCH ×4 (06:57→21:00)
[2019-10-06 07:23] LABS: PHOSPHORUS 6.3 mg/dL (2.5-4.9)
[2019-10-06] MEDS: SPIRONOLACTONE 25MG TABLET PO SCH (09:00)
[2019-10-06] MEDS: AMLODIPINE 10MG TABLET PO SCH (09:00)
[2019-10-06] MEDS: FUROSEMIDE 40MG TABLET PO SCH ×2 (09:00→21:46)
[2019-10-06] MEDS ORDERED: LIDOCAINE HCL 1% 20ML VIAL (Pyxis) INJ ONE (10:05)
[2019-10-06] MEDS ORDERED: SODIUM BICARBONATE 4% (2.4MEQ) 5ML VIAL IV ONE (10:05)
[2019-10-06] MEDS ORDERED: HEPARIN 1000 UNITS/ML 10ML ONE (10:05)
[2019-10-06] MEDS ORDERED: FENTANYL CITRATE/PF 50MCG/ML 2ML VIAL ONE (10:10)
[2019-10-06] MEDS ORDERED: CEFAZOLIN 1000MG PREMIX 50 ML IV ONE (10:32)
[2019-10-06] MEDS ORDERED: FENTANYL CITRATE/PF 50MCG/ML 2ML VIAL IV ONE (10:45)
[2019-10-06] MEDS ORDERED: CEFAZOLIN 1000MG PREMIX 50 ML IV NR (11:15)
[2019-10-06] MEDS ORDERED: CEFAZOLIN SODIUM 1000MG/VIAL IM NR (12:00)
[2019-10-06] MEDS: GUAIFENESIN/DM 600MG/30MG ER TAB 12HR PO SCH ×2 (12:22→21:46)
[2019-10-06] MEDS: ASPIRIN 81MG EC TABLET PO SCH (12:23)
[2019-10-06] MEDS: ZINC SULFATE 220 MG ( 50 ) CAPSULE PO SCH (12:23)
[2019-10-06] MEDS: ASCORBIC ACID 500 MG TABLET PO SCH (12:23)
[2019-10-06] MEDS: FAMOTIDINE 20MG TABLET PO SCH (12:24)
[2019-10-06] MEDS: ENOXAPARIN 30MG/0.3ML SYR SUBCUT SCH (12:28)
[2019-10-06 13:04] LABS: PLATELET ESTIMATE NORMAL
[2019-10-06 14:22] LABS: TOTAL IRON BINDING CAPACITY 284 ug/dL (250-450)
[2019-10-06] MEDS: ATORVASTATIN CALCIUM 10MG TABLET PO SCH (21:46)
[2019-10-07] VITALS (7 sets, daily range): BP systolic 129–152; BP diastolic 52–61
[2019-10-07] MEDS: BLOOD SUGAR DIAGNOSTIC STRIP TEST SCH ×2 (05:41→12:55)
[2019-10-07] MEDS: HYDRALAZINE HCL 50MG TABLET PO SCH (06:15)
[2019-10-07] MEDS: CARVEDILOL 6.25 MG TABLET PO SCH (06:15)
[2019-10-07] MEDS: INSULIN LISPRO 100 UNITS/ML SUBCUT SCH ×2 (06:19→13:03)
[2019-10-07 06:50] LABS: PHOSPHORUS 4.1 mg/dL (2.5-4.9)
[2019-10-07 07:40] LABS: BASOPHILS % 0.6 % (0.0-2.0); EOSINOPHILS % 2.2 % (0.0-5.0); HEMATOCRIT. 27.8 % (42.0-52.0); HEMOGLOBIN. 9.3 g/dL (14.0-18.0); LYMPHOCYTES % 14.7 % (20.0-50.0); MEAN CORPUSCULAR HEMOGLOBIN 28.1 pg (28.0-32.0); MEAN CORPUSCULAR VOLUME 84.2 fL (80.0-94.0); MEAN PLATELET VOLUME 8.9 fl (7.4-10.4); MONOCYTES % 14.5 % (2.0-8.0); PLATELET 163 x1000/uL (130-400)
[2019-10-07] MEDS ORDERED: POTASSIUM CHLORIDE 20MEQ TABLET SR PO SCH (08:00)
[2019-10-07] MEDS: GUAIFENESIN/DM 600MG/30MG ER TAB 12HR PO SCH (08:37)
[2019-10-07] MEDS: SPIRONOLACTONE 25MG TABLET PO SCH (08:37)
[2019-10-07] MEDS: ZINC SULFATE 220 MG ( 50 ) CAPSULE PO SCH (08:37)
[2019-10-07] MEDS: ASPIRIN 81MG EC TABLET PO SCH (08:38)
[2019-10-07] MEDS: ASCORBIC ACID 500 MG TABLET PO SCH (08:38)
[2019-10-07] MEDS: AMLODIPINE 10MG TABLET PO SCH (08:38)
[2019-10-07] MEDS: FAMOTIDINE 20MG TABLET PO SCH (08:38)
[2019-10-07] MEDS ORDERED: FUROSEMIDE 40MG TABLET PO SCH (09:00)
[2019-10-07] MEDS: ENOXAPARIN 30MG/0.3ML SYR SUBCUT SCH (13:03)
== END 2019-10-07 17:00 | disposition home health service (06) | DRG 291 ==
LOC: ER 01:26 → 7WST 05:23 → SUPCPDRO 06:37 → ENRESERV 20:07 → 8WST 10-04 11:55
PROVIDERS: ADMIT Internal Medicine; ATTEND Internal Medicine
PROC: 02HV33Z Insertion of Infusion Device into Superior Vena Cava, Percutaneous Approach (ICD-10-PCS; 2019-10-03)
PROC: B548ZZA Ultrasonography of Superior Vena Cava, Guidance (ICD-10-PCS; 2019-10-03)
PROC: 5A1D70Z Performance of Urinary Filtration, Intermittent, Less than 6 Hours Per Day (ICD-10-PCS; principal; 2019-10-04)
PROC: 5A1D70Z Performance of Urinary Filtration, Intermittent, Less than 6 Hours Per Day (ICD-10-PCS; 2019-10-06)
PROC: 02PYX3Z Removal of Infusion Device from Great Vessel, External Approach (ICD-10-PCS; 2019-10-06)
PROC: 02H633Z Insertion of Infusion Device into Right Atrium, Percutaneous Approach (ICD-10-PCS; 2019-10-06)
PROC: 0JH63XZ Insertion of Tunneled Vascular Access Device into Chest Subcutaneous Tissue and Fascia, Percutaneous Approach (ICD-10-PCS; 2019-10-06)
PROC: B518ZZA Fluoroscopy of Superior Vena Cava, Guidance (ICD-10-PCS; 2019-10-06)
DX: I13.2 Hypertensive heart and chronic kidney disease with heart failure and with stage 5 chronic kidney disease, or end stage renal disease (principal); J96.00 Acute respiratory failure, unspecified whether with hypoxia or hypercapnia; N17.0 Acute kidney failure with tubular necrosis; I50.33 Acute on chronic diastolic (congestive) heart failure; N18.6 End stage renal disease; E87.2 Acidosis; K56.7 Ileus, unspecified; E11.22 Type 2 diabetes mellitus with diabetic chronic kidney disease; D63.8 Anemia in other chronic diseases classified elsewhere; E78.5 Hyperlipidemia, unspecified; I25.10 Atherosclerotic heart disease of native coronary artery without angina pectoris; M10.9 Gout, unspecified; K21.9 Gastro-esophageal reflux disease without esophagitis; E11.40 Type 2 diabetes mellitus with diabetic neuropathy, unspecified; E11.319 Type 2 diabetes mellitus with unspecified diabetic retinopathy without macular edema; Z20.828 Contact with and (suspected) exposure to other viral communicable diseases; M81.0 Age-related osteoporosis without current pathological fracture; I27.20 Pulmonary hypertension, unspecified; Z79.899 Other long term (current) drug therapy; Z79.82 Long term (current) use of aspirin; Z99.2 Dependence on renal dialysis; Z86.718 Personal history of other venous thrombosis and embolism
CPT/HCPCS: 36415; 36558; 36589; 36600; 71045; 76770; 77001; 80048; 80053; 80061; 81003; 82375; 82550; 82553; 82805; 82962; 83036; 83540; 83550; 83605; 83735; 83880; 84100; 84145; 84484; 85025; 85379; 86705; 86706; 86709; 86803; 87340; 87635; 93005; 93306; 93970; 96365; 97116; 97162; 97166; 97530; 99152; 99153; 99291; C1752; J0456; J0690; J0696; J0885; J1644; J1650; J1815; J1940; J3010; J3490; J7060; G0500

== ENCOUNTER 2021-12-30 05:01 | Emergency (ER) | payer MEDICARE, MEDICAID ==
[~2021-12-30] VITALS: Ht 162.6 cm; Wt 65.0 kg
[~2021-12-30 05:01] MED LIST changes: +MECL-159 PO
[2021-12-30 07:06] LABS: CHLORIDE 99 mEq/L (98-107)
[2021-12-30 07:14] LABS: BASOPHILS % 0.5 % (0.0-2.0); EOSINOPHILS % 2.9 % (0.0-5.0); HEMATOCRIT. 31.5 % (42.0-52.0); HEMOGLOBIN. 10.9 g/dL (14.0-18.0); LYMPHOCYTES % 21.7 % (20.0-50.0); MEAN CORPUSCULAR HEMOGLOBIN 34.1 pg (28.0-32.0); MEAN CORPUSCULAR VOLUME 98.6 fL (80.0-94.0); MONOCYTES % 9.7 % (2.0-8.0); NEUTROPHILS % 65.2 % (40.0-76.0); PLATELET 149 x1000/uL (130-400); RED CELL DISTRIBUTION WIDTH 14.2 % (11.6-14.6)
[2021-12-30] MEDS ORDERED: ACETAMINOPHEN 325MG TABLET PO ONE (08:45)
[2021-12-30 15:25] VITALS: BP 148/76
== END 2021-12-30 15:49 | disposition home or self-care (01) ==
LOC: ER 05:01
DX: R06.02 Shortness of breath (principal); I11.0 Hypertensive heart disease with heart failure; I50.9 Heart failure, unspecified; E78.00 Pure hypercholesterolemia, unspecified; E11.9 Type 2 diabetes mellitus without complications; Z79.899 Other long term (current) drug therapy
CPT/HCPCS: 36415; 71045; 80053; 83880; 84484; 85025; 93005; 99285

== ENCOUNTER 2023-01-02 08:21 | Emergency (ER) | payer MEDICARE, MEDICAID ==
[~2023-01-02] VITALS: Ht 177.8 cm; Wt 102.0 kg
[~2023-01-02 08:21] MED LIST changes: -MECL-159 PO; +MECL-299 PO
[2023-01-02 08:26] VITALS: O2SAT 100
[2023-01-02] MEDS ORDERED: ASPIRIN 81MG TABLET PO ONE (08:30)
[2023-01-02] MEDS ORDERED: CLONIDINE 0.1MG TABLET PO ONE (08:30)
[2023-01-02] MEDS ORDERED: HYDRALAZINE HCL 100MG TABLET PO ONE (08:30)
[2023-01-02 09:09] LABS: BASOPHILS % 0.6 % (0.0-2.0); EOSINOPHILS % 3.2 % (0.0-5.0); HEMATOCRIT. 35.2 % (42.0-52.0); LYMPHOCYTES % 24.1 % (20.0-50.0); MEAN PLATELET VOLUME 8.4 fl (7.4-10.4); MONOCYTES % 9.6 % (2.0-8.0); NEUTROPHILS % 62.5 % (40.0-76.0); PLATELET 127 x1000/uL (130-400); RED BLOOD CELL COUNT 3.63 mill/uL (4.7-6.1); RED CELL DISTRIBUTION WIDTH 14.3 % (11.6-14.6); WHITE BLOOD COUNT 2.8 x1000/uL (4.5-11.0)
[2023-01-02] MEDS ORDERED: ASPIRIN 81MG TABLET PO SCH (09:15)
[2023-01-02] MEDS ORDERED: SORBITOL 70% SOLN 30ML PO SCH (09:15)
[2023-01-02 09:17] LABS: CHLORIDE 98 mEq/L (98-107); INDEX HEMOLYSI 1 (1-3); INDEX ICTERIC 1 (1-4); INDEX LIPEMIC 1 (1-3); POTASSIUM 3.5 mEq/L (3.5-5.1); SODIUM 137 mEq/L (136-145)
[2023-01-02] MEDS ORDERED: CARVEDILOL 6.25 MG TABLET PO SCH (09:30)
[2023-01-02 09:39] LABS: ALANINE AMINOTRANSFERASE 34 IU/L (13-61); ALBUMIN 3.3 g/dL (3.4-5.0); ASPARTATE AMINOTRANSFERASE 19 IU/L (15-37); BILIRUBIN TOTAL 0.9 mg/dL (0.1-1.0); CALCIUM 8.6 mg/dL (8.5-10.1); CARBON DIOXIDE 33 mEq/L (21-32); CREATININE 2.6 mg/dL (0.6-1.3); GLUCOSE 109 mg/dL (70-105); PROTEIN TOTAL 7.1 g/dL (6.0-8.3); TROPONIN I HIGH SENSITIVITY 56 ng/L (<78); UREA NITROGEN BLOOD 22 mg/dL (7-21)
[2023-01-02] MEDS ORDERED: SPIRONOLACTONE 25MG TABLET PO SCH (10:00)
[2023-01-02] MEDS ORDERED: FUROSEMIDE 40MG TABLET PO SCH (10:00)
[2023-01-02] MEDS ORDERED: AMLODIPINE 5MG TABLET PO SCH (10:00)
[2023-01-02] MEDS ORDERED: OMEPRAZOLE 20MG CAPSULE EXTENDED RELEASE PO SCH (10:30)
[2023-01-02] MEDS ORDERED: FOLIC ACID/VITAMIN B COMP W-C TABLET PO SCH (11:00)
[2023-01-02 11:41] LABS: TROPONIN I HIGH SENSITIVITY 51 ng/L (3.0-53)
[2023-01-02] MEDS ORDERED: CALCIUM ACETATE 667MG CAPSULE PO SCH (13:00)
[2023-01-02 15:05] VITALS: BP 148/66; PULSE 75; RESP 19; TEMP 98
[2023-01-02] MEDS ORDERED: METOCLOPRAMIDE HCL 5MG TABLET PO SCH (21:00)
[2023-01-02] MEDS ORDERED: ATORVASTATIN CALCIUM 10MG TABLET PO SCH (21:00)
== END 2023-01-02 16:28 | disposition home or self-care (01) ==
LOC: ER 08:21
DX: I10 Essential (primary) hypertension (principal); E78.00 Pure hypercholesterolemia, unspecified; Z79.82 Long term (current) use of aspirin; Z79.899 Other long term (current) drug therapy
CPT/HCPCS: 36415; 80053; 84484; 85025; 93005; 99284

== ENCOUNTER 2024-04-19 03:46 | Inpatient (IN) | payer MEDICARE, MEDICAID ==
[2024-04-19] VITALS (74 sets, daily range): BP systolic 61–179; BP diastolic 34–68; PULSE 58–94; RESP 10–24; TEMP 33.3–35.2; O2SAT 96–100
[~2024-04-19] VITALS: Ht 185.4 cm; Wt 80.0 kg
[~2024-04-19 03:46] MED LIST changes: +HYDR100T11 MT; +HYDR100T11 PO; -HYDR100T26 MT; -HYDR100T26 PO
[2024-04-19] MEDS ORDERED: ACETAMINOPHEN 650MG SUPP PR PRN (04:00)
[2024-04-19] MEDS: SODIUM CHLORIDE 0.9% 1,000 ML IV ONE (04:01)
[2024-04-19] MEDS: INSULIN REGULAR (HUMULIN R) 1000UNITS/10ML VIAL IV ONE (04:08)
[2024-04-19] MEDS: NOREPINEPHRINE 8MG/250ML PMX 250 ML IV ONE (04:10)
[2024-04-19] MEDS: ROCURONIUM BROMIDE 10MG/ML VIAL 5ML IV ONE (04:10)
[2024-04-19] MEDS: DEXTROSE 50% WATER 50ML SYRINGE IV ONE (04:11)
[2024-04-19 04:14] LABS: BASOPHILS % 0.2 % (0.0-2.0); DIFFERENTIAL COMMENT 0; EOSINOPHILS % 0.8 % (0.0-5.0); HEMATOCRIT. 22.7 % (42.0-52.0); HEMOGLOBIN. 7.6 g/dL (14.0-18.0); LYMPHOCYTES % 19.6 % (20.0-50.0); MEAN CORPUSCULAR HEMOGLOBIN 33.7 pg (28.0-32.0); MEAN CORPUSCULAR HGB CONC 33.3 g/dL (31.0-37.0); MEAN CORPUSCULAR VOLUME 101.3 fL (80.0-94.0); MEAN PLATELET VOLUME 9.3 fl (7.4-10.4); MONOCYTES % 3.9 % (2.0-8.0); NEUTROPHILS % 75.5 % (40.0-76.0); PLATELET 108 x1000/uL (130-400); RED BLOOD CELL COUNT 2.24 mill/uL (4.7-6.1); RED CELL DISTRIBUTION WIDTH 14.6 % (11.6-14.6); WHITE BLOOD COUNT 12.3 x1000/uL (4.5-11.0)
[2024-04-19] MEDS: PROPOFOL 10MG/ML 100ML 100 ML IV ONE (04:16)
[2024-04-19 04:21] LABS: CHLORIDE 97 mEq/L (98-107); POTASSIUM 5.1 mEq/L (3.5-5.1); SODIUM 139 mEq/L (136-145)
[2024-04-19 04:22] LABS: CALCIUM 11.9 mg/dL (8.7-10.4); CARBON DIOXIDE 22 mEq/L (21-32)
[2024-04-19 04:28] LABS: UREA NITROGEN BLOOD 65 mg/dL (9-23)
[2024-04-19 04:29] LABS: ALANINE AMINOTRANSFERASE 293 IU/L (10-49); ALBUMIN 3.2 g/dL (3.2-4.8); ASPARTATE AMINOTRANSFERASE 255 IU/L (<34); BILIRUBIN DIRECT 0.2 mg/dL (<=3.0)
[2024-04-19 04:30] LABS: BILIRUBIN TOTAL 0.4 mg/dL (0.1-1.0); PROTEIN TOTAL 5.8 g/dL (6.0-8.3)
[2024-04-19 04:39] LABS: INR 1.2; PROTHROMBIN TIME 12.5 sec (9.6-11.0)
[2024-04-19 04:40] LABS: ETHANOL BLOOD < 10 mg/dL (<10)
[2024-04-19 04:41] LABS: GLUCOSE 342 mg/dL (70-105)
[2024-04-19 04:42] LABS: CREATININE 6.6 mg/dL (0.6-1.3); PHOSPHORUS 9.3 mg/dL (2.5-4.9); TROPONIN I HIGH SENSITIVITY 104 ng/L (3.0-53)
[2024-04-19] MEDS: CALCIUM GLUCONATE 1GM PREMIX 50 ML IV ONE (04:55)
[2024-04-19] MEDS ORDERED: CEFEPIME 2GM IN DEXT 5% 100ML IV SCH (08:00)
[2024-04-19 08:27] LABS: CHLORIDE 100 mEq/L (98-107); POTASSIUM 4.2 mEq/L (3.5-5.1); SODIUM 139 mEq/L (136-145)
[2024-04-19 08:28] LABS: CALCIUM 11.4 mg/dL (8.7-10.4); CARBON DIOXIDE 21 mEq/L (21-32)
[2024-04-19 08:33] LABS: GLUCOSE 256 mg/dL (70-105); UREA NITROGEN BLOOD 66 mg/dL (9-23)
[2024-04-19 08:34] LABS: TROPONIN I HIGH SENSITIVITY 310 ng/L (3.0-53)
[2024-04-19 08:37] LABS: T4 FREE 1.03 ng/dL (0.89-1.76)
[2024-04-19 08:38] LABS: THYROID STIMULATING HORMONE 2.52 uIU/mL (0.55-4.78)
[2024-04-19 08:42] LABS: CREATININE 6.5 mg/dL (0.6-1.3)
[2024-04-19 08:44] LABS: TROPONIN I HIGH SENSITIVITY 1492 ng/L (3.0-53)
[2024-04-19] MEDS ORDERED: GUAIFENESIN 200MG/10ML SUGAR FREE UDC PO PRN (09:00)
[2024-04-19] MEDS ORDERED: ONDANSETRON HCL 4MG/2ML INJ IV PRN (09:00)
[2024-04-19] MEDS ORDERED: IPRATROPIUM/ALBUTEROL 0.5-3(2.5)MG/3ML NEB HHN PRN (09:00)
[2024-04-19] MEDS ORDERED: CLONIDINE 0.1MG TABLET PO PRN (09:00)
[2024-04-19] MEDS ORDERED: MAGNESIUM/ALUMINUM HYDROXIDE/SIMETHICONE 30ML UDC PO PRN (09:00)
[2024-04-19] MEDS ORDERED: ENOXAPARIN 40MG/0.4ML SYR SUBCUT SCH (09:00)
[2024-04-19 09:49] LABS: BG BASE EXCESS -4.2 mmol/L (-2.0-3.0); BG CARBOXYHEMOGLOBIN 1.8 % (0.5-1.5); BG DEOXYHEMOGLOBIN 2.4 % (0.0-5.0); BG FRACTION INSPIRED OXYGEN 100; BG METHEMOGLOBIN 0.3 % (0.5-1.5); BG OXYGEN SATURATION 97.5 % (94.0-98.0); BG OXYHEMOGLOBIN 95.5 % (94.0-98.0); BG PH 7.401 (7.350-7.450); BG PO2 106.2 mmHg (83.0-108.0); BG SAMPLE SITE RIGHT RADIAL; BG TOTAL HEMOGLOBIN 8.7 g/dL (13.5-17.5); BG TOTAL RESPIRATORY RATE 18 b/min; BG VENT MODE VENT - AC
[2024-04-19] MEDS ORDERED: NOREPINEPHRINE 32 MG in DEXT 5% WATER 218 ML IV PRN (10:00)
[2024-04-19] MEDS: FAMOTIDINE 20MG/2ML VIAL IV SCH (10:30)
[2024-04-19] MEDS: CEFEPIME 1GM/50ML 50 ML IV SCH (10:30)
[2024-04-19] MEDS: BLOOD SUGAR DIAGNOSTIC STRIP TEST SCH (11:16)
[2024-04-19 11:27] LABS: HEMATOCRIT 25.6 % (42.0-52.0); HEMOGLOBIN 8.6 g/dL (14.0-18.0)
[2024-04-19 11:41] LABS: LACTIC ACID 7.7 mmol/L (0.4-2.0)
[2024-04-19] MEDS: INSULIN LISPRO 100 UNITS/ML SUBCUT SCH (11:45)
[2024-04-19 12:05] LABS: HEPATITIS B SURFACE ANTIGEN NEGATIVE (Negative)
[2024-04-19] MEDS: DEXT 5%/LACTATED RINGERS 1,000 ML IV SCH (12:14)
[2024-04-19 12:26] LABS: HEPATITIS A AB IGM NEGATIVE (Negative)
[2024-04-19 12:27] LABS: HEPATITIS B CORE AB IGM NEGATIVE (Negative); HEPATITIS C AB NON REACTIVE (Neg) (Negative)
[2024-04-19] MEDS ORDERED: POTASSIUM CHLORIDE 20MEQ/PACKET PO ONE (14:15)
[2024-04-19 16:41] LABS: CREATINE KINASE 339 IU/L (46-171)
[2024-04-19 16:45] LABS: TROPONIN I HIGH SENSITIVITY 5707 ng/L (3.0-53)
[2024-04-19] MEDS: NOREPINEPHRINE 8MG/250ML PMX 250 ML IV PRN (19:30)
[2024-04-19] MEDS: EPOETIN ALFA 10000UNITS/ML VIAL SUBCUT SCH (20:28)
[2024-04-19] MEDS: POLYVINYL ALCOHOL OPHTH DROPS 15ML BOTHEYE SCH (20:28)
[2024-04-19] MEDS ORDERED: PROPOFOL 10MG/ML 100ML 100 ML IV PRN (21:15)
[2024-04-19 23:48] LABS: CREATINE KINASE 391 IU/L (46-171)
[2024-04-20] VITALS (102 sets, daily range): BP systolic 111–164; BP diastolic 29–128; PULSE 62–103; RESP 11–19; TEMP 34.5–36.4; O2SAT 98–100
[2024-04-20 00:04] LABS: TROPONIN I HIGH SENSITIVITY 7844 ng/L (3.0-53)
[2024-04-20 06:22] LABS: HEMATOCRIT. 23.9 % (42.0-52.0); HEMOGLOBIN. 8.4 g/dL (14.0-18.0); MEAN CORPUSCULAR HEMOGLOBIN 33.6 pg (28.0-32.0); MEAN CORPUSCULAR HGB CONC 35.1 g/dL (31.0-37.0); MEAN CORPUSCULAR VOLUME 95.7 fL (80.0-94.0); MEAN PLATELET VOLUME 9.3 fl (7.4-10.4); PLATELET 87 x1000/uL (130-400); RED CELL DISTRIBUTION WIDTH 14.7 % (11.6-14.6); WHITE BLOOD COUNT 12.6 x1000/uL (4.5-11.0)
[2024-04-20 06:39] LABS: CALCIUM 9.8 mg/dL (8.7-10.4); CARBON DIOXIDE 26 mEq/L (21-32); CHLORIDE 104 mEq/L (98-107); POTASSIUM 4.4 mEq/L (3.5-5.1); SODIUM 143 mEq/L (136-145)
[2024-04-20 06:43] LABS: T4 FREE 1.37 ng/dL (0.89-1.76)
[2024-04-20 06:44] LABS: CREATININE 4.8 mg/dL (0.6-1.3); GLUCOSE 197 mg/dL (70-105)
[2024-04-20 06:45] LABS: LDL CHOLESTEROL 12 mg/dL (5-100); TRIGLYCERIDE 68 mg/dL (0-150); UREA NITROGEN BLOOD 47 mg/dL (9-23)
[2024-04-20 06:46] LABS: CHOLESTEROL 69 mg/dL (<200); HDL CHOLESTEROL 27 mg/dL (>55)
[2024-04-20 06:47] LABS: PHOSPHORUS 2.1 mg/dL (2.5-4.9)
[2024-04-20 06:50] LABS: DIFFERENTIAL COMMENT 1
[2024-04-20] MEDS: ENOXAPARIN 30MG/0.3ML SYR SUBCUT SCH (09:24)
[2024-04-20] MEDS: SODIUM PHOSPHATE 15 MMOL in DEXT 5% WATER 245 ML IV NR (09:24)
[2024-04-20 09:54] LABS: BG BASE EXCESS 0.7 mmol/L (-2.0-3.0); BG CARBOXYHEMOGLOBIN 2.3 % (0.5-1.5); BG DEOXYHEMOGLOBIN 3.6 % (0.0-5.0); BG FRACTION INSPIRED OXYGEN 60; BG HCO3 ACT 22.7 mmol/L (21.0-28.0); BG METHEMOGLOBIN 0.2 % (0.5-1.5); BG OXYGEN SATURATION 96.3 % (94.0-98.0); BG OXYHEMOGLOBIN 93.9 % (94.0-98.0); BG PH 7.559 (7.350-7.450); BG PO2 80.8 mmHg (83.0-108.0); BG SAMPLE SITE RIGHT RADIAL; BG TOTAL HEMOGLOBIN 7.3 g/dL (13.5-17.5); BG VENT MODE VENT - AC
[2024-04-20] MEDS: ASPIRIN 81MG TABLET PO SCH (13:37)
[2024-04-20 15:50] LABS: PLATELET ESTIMATE DECREASED
[2024-04-20] MEDS: DEXTROSE 50% WATER 50ML SYRINGE IV PRN (16:33)
[2024-04-20] MEDS ORDERED: ENOXAPARIN 80MG/0.8ML SYR SUBCUT SCH (18:00)
[2024-04-20] MEDS: ENOXAPARIN 60MG/0.6ML SYR SUBCUT NR (18:45)
[2024-04-20] MEDS: METOPROLOL TARTRATE 25MG TABLET PO SCH (20:24)
[2024-04-20] MEDS: ATORVASTATIN CALCIUM 40MG TABLET PO SCH (20:24)
[2024-04-20] MEDS ORDERED: ATORVASTATIN CALCIUM 20MG TABLET PO SCH (21:00)
[2024-04-21] VITALS (108 sets, daily range): BP systolic 94–169; BP diastolic 29–72; PULSE 61–97; RESP 7–20; TEMP 34.3–36.9; O2SAT 99–100
[2024-04-21 01:17] LABS: TROPONIN I HIGH SENSITIVITY 1992 ng/L (3.0-53)
[2024-04-21 05:56] LABS: HEMOGLOBIN. 7.9 g/dL (14.0-18.0); MEAN CORPUSCULAR HEMOGLOBIN 33.5 pg (28.0-32.0); MEAN CORPUSCULAR HGB CONC 34.6 g/dL (31.0-37.0); MEAN CORPUSCULAR VOLUME 96.8 fL (80.0-94.0); MEAN PLATELET VOLUME 9.6 fl (7.4-10.4); PLATELET 71 x1000/uL (130-400); RED BLOOD CELL COUNT 2.38 mill/uL (4.7-6.1)
[2024-04-21 06:17] LABS: CALCIUM 9.1 mg/dL (8.7-10.4); CARBON DIOXIDE 26 mEq/L (21-32); CHLORIDE 106 mEq/L (98-107); POTASSIUM 4.4 mEq/L (3.5-5.1); SODIUM 145 mEq/L (136-145)
[2024-04-21 06:22] LABS: GLUCOSE 235 mg/dL (70-105)
[2024-04-21 06:23] LABS: UREA NITROGEN BLOOD 56 mg/dL (9-23)
[2024-04-21 06:24] LABS: PHOSPHORUS 3.9 mg/dL (2.5-4.9)
[2024-04-21 06:28] LABS: DIFFERENTIAL COMMENT 1
[2024-04-21 06:40] LABS: CREATININE 5.6 mg/dL (0.6-1.3)
[2024-04-21] MEDS: ENOXAPARIN 80MG/0.8ML SYR SUBCUT SCH (08:44)
[2024-04-21 08:57] LABS: ANISOCYTOSIS 1+; PLATELET ESTIMATE DECREASED
[2024-04-21] MEDS: ENOXAPARIN 30MG/0.3ML SYR SUBCUT SCH (09:00)
[2024-04-21 09:22] LABS: BG BASE EXCESS -0.3 mmol/L (-2.0-3.0); BG DEOXYHEMOGLOBIN 23.9 % (0.0-5.0); BG FRACTION INSPIRED OXYGEN 60; BG METHEMOGLOBIN 0.3 % (0.5-1.5); BG OXYGEN SATURATION 75.5 % (94.0-98.0); BG OXYHEMOGLOBIN 73.8 % (94.0-98.0); BG PCO2 36.5 mmHg (35.0-48.0); BG PH 7.435 (7.350-7.450); BG PO2 40.1 mmHg (83.0-108.0); BG SAMPLE SITE RIGHT BRACHIAL; BG VENT MODE VENT - AC
[2024-04-21] MEDS: INSULIN GLARGINE 100 UNITS/ML SUBCUT SCH (10:22)
[2024-04-21] MEDS ORDERED: LIDOCAINE HCL 1% 10 MG/ML 10ML VIAL ONE (12:18)
[2024-04-21 14:44] LABS: HEMOGLOBIN 7.1 g/dL (14.0-18.0)
[2024-04-21 14:48] LABS: HEMATOCRIT 20.6 % (42.0-52.0)
[2024-04-22] VITALS (114 sets, daily range): BP systolic 83–136; BP diastolic 23–48; PULSE 75–92; RESP 7–16; TEMP 36.2–37.4; O2SAT 99–100
[2024-04-22 06:24] LABS: MEAN CORPUSCULAR HEMOGLOBIN 33.9 pg (28.0-32.0); MEAN CORPUSCULAR VOLUME 96.9 fL (80.0-94.0); MEAN PLATELET VOLUME 9.6 fl (7.4-10.4); PLATELET 66 x1000/uL (130-400); RED BLOOD CELL COUNT 2.02 mill/uL (4.7-6.1); RED CELL DISTRIBUTION WIDTH 15.2 % (11.6-14.6); WHITE BLOOD COUNT 7.6 x1000/uL (4.5-11.0)
[2024-04-22 06:38] LABS: POTASSIUM 4.4 mEq/L (3.5-5.1)
[2024-04-22 06:46] LABS: PHOSPHORUS 2.9 mg/dL (2.5-4.9)
[2024-04-22 06:57] LABS: CREATININE 6.8 mg/dL (0.6-1.3)
[2024-04-22] MEDS ORDERED: SODIUM CHLORIDE 0.45% 500 ML IV ONE (07:45)
[2024-04-22 07:49] LABS: DIFFERENTIAL COMMENT 1
[2024-04-22 07:50] LABS: HEMATOCRIT. 19.6 % (42.0-52.0); HEMOGLOBIN. 6.9 g/dL (14.0-18.0)
[2024-04-22 11:51] LABS: NUCLEATED RED BLOOD CELLS 2 /100 WBC
[2024-04-22 11:52] LABS: ANISOCYTOSIS 1+; PLATELET ESTIMATE DECREASED
[2024-04-22] MEDS: ACETAMINOPHEN 650MG/20.3ML UDC NG PRN (13:35)
[2024-04-22 14:54] LABS: BG BASE EXCESS 1.8 mmol/L (-2.0-3.0); BG CARBOXYHEMOGLOBIN 1.2 % (0.5-1.5); BG DEOXYHEMOGLOBIN 0.9 % (0.0-5.0); BG FRACTION INSPIRED OXYGEN 50; BG HCO3 ACT 24.7 mmol/L (21.0-28.0); BG METHEMOGLOBIN 0.3 % (0.5-1.5); BG OXYGEN SATURATION 99.1 % (94.0-98.0); BG OXYHEMOGLOBIN 97.6 % (94.0-98.0); BG PO2 147.1 mmHg (83.0-108.0); BG SAMPLE SITE RIGHT RADIAL; BG TOTAL HEMOGLOBIN 6.3 g/dL (13.5-17.5); BG VENT MODE VENT - AC
[2024-04-22 19:02] LABS: HEMOGLOBIN 7.8 g/dL (14.0-18.0)
[2024-04-22 19:41] LABS: INR 1.2; PROTHROMBIN TIME 12.7 sec (9.6-11.0)
[2024-04-22] MEDS: DOCUSATE SODIUM 100MG CAPSULE PO PRN (20:56)
[2024-04-22] MEDS: EPOETIN ALFA-EPBX 4,000 UNIT/ML VIAL SUBCUT SCH (20:57)
[2024-04-23] VITALS (43 sets, daily range): BP systolic 57–95; BP diastolic 23–76; PULSE 0–80; RESP 12–16; TEMP 36.9; O2SAT 97–100
[2024-04-23 05:36] LABS: HEMATOCRIT. 23.1 % (42.0-52.0); MEAN CORPUSCULAR HEMOGLOBIN 33.5 pg (28.0-32.0); MEAN CORPUSCULAR HGB CONC 34.8 g/dL (31.0-37.0); MEAN CORPUSCULAR VOLUME 96.3 fL (80.0-94.0); MEAN PLATELET VOLUME 9.9 fl (7.4-10.4); PLATELET 60 x1000/uL (130-400); RED CELL DISTRIBUTION WIDTH 15.8 % (11.6-14.6); WHITE BLOOD COUNT 8.2 x1000/uL (4.5-11.0)
[2024-04-23 05:49] LABS: CALCIUM 8.3 mg/dL (8.7-10.4); POTASSIUM 4.3 mEq/L (3.5-5.1)
[2024-04-23 05:59] LABS: DIFFERENTIAL COMMENT 1; HEMOGLOBIN. 8.1 g/dL (14.0-18.0)
[2024-04-23 06:51] LABS: CREATININE 5.3 mg/dL (0.6-1.3)
[2024-04-23 09:00] LABS: BG BASE EXCESS 1.1 mmol/L (-2.0-3.0); BG CARBOXYHEMOGLOBIN 1.4 % (0.5-1.5); BG DEOXYHEMOGLOBIN 6.4 % (0.0-5.0); BG FRACTION INSPIRED OXYGEN 40; BG HCO3 ACT 25.8 mmol/L (21.0-28.0); BG METHEMOGLOBIN 0.3 % (0.5-1.5); BG OXYGEN SATURATION 93.5 % (94.0-98.0); BG OXYHEMOGLOBIN 91.9 % (94.0-98.0); BG PCO2 41.9 mmHg (35.0-48.0); BG PH 7.408 (7.350-7.450); BG SAMPLE SITE RIGHT RADIAL; BG TOTAL HEMOGLOBIN 6.8 g/dL (13.5-17.5); BG VENT MODE VENT - AC
[2024-04-23] MEDS ORDERED: PHENYLEPHRINE 50MG/250ML PMX 250 ML IV PRN (09:30)
[2024-04-23 09:58] LABS: ANISOCYTOSIS 1+; NUCLEATED RED BLOOD CELLS 1 /100 WBC; PLATELET ESTIMATE MARKEDLY DECREASED
== END 2024-04-23 14:01 | DRG 870 ==
LOC: ER 03:46 → MICUSO 06:56
PROVIDERS: ADMIT Internal Medicine; ATTEND Internal Medicine
PROC: 5A1955Z Respiratory Ventilation, Greater than 96 Consecutive Hours (ICD-10-PCS; principal; 2024-04-19)
PROC: 0BH17EZ Insertion of Endotracheal Airway into Trachea, Via Natural or Artificial Opening (ICD-10-PCS; 2024-04-19)
PROC: 5A1D70Z Performance of Urinary Filtration, Intermittent, Less than 6 Hours Per Day (ICD-10-PCS; 2024-04-19)
PROC: 05H533Z Insertion of Infusion Device into Right Subclavian Vein, Percutaneous Approach (ICD-10-PCS; 2024-04-21)
PROC: B546ZZA Ultrasonography of Right Subclavian Vein, Guidance (ICD-10-PCS; 2024-04-21)
PROC: 4A00X4Z Measurement of Central Nervous Electrical Activity, External Approach (ICD-10-PCS; 2024-04-21)
PROC: 30233N1 Transfusion of Nonautologous Red Blood Cells into Peripheral Vein, Percutaneous Approach (ICD-10-PCS; 2024-04-22)
PROC: 5A1D70Z Performance of Urinary Filtration, Intermittent, Less than 6 Hours Per Day (ICD-10-PCS; 2024-04-22)
DX: A41.9 Sepsis, unspecified organism (principal); G92.8 Other toxic encephalopathy; N18.6 End stage renal disease; J69.0 Pneumonitis due to inhalation of food and vomit; R65.21 Severe sepsis with septic shock; J96.01 Acute respiratory failure with hypoxia; J18.9 Pneumonia, unspecified organism; K72.00 Acute and subacute hepatic failure without coma; I13.2 Hypertensive heart and chronic kidney disease with heart failure and with stage 5 chronic kidney disease, or end stage renal disease; G93.1 Anoxic brain damage, not elsewhere classified; N25.81 Secondary hyperparathyroidism of renal origin; I50.22 Chronic systolic (congestive) heart failure; E87.4 Mixed disorder of acid-base balance; I24.89 Other forms of acute ischemic heart disease; I46.9 Cardiac arrest, cause unspecified; E83.39 Other disorders of phosphorus metabolism; E83.52 Hypercalcemia; I25.10 Atherosclerotic heart disease of native coronary artery without angina pectoris; E11.65 Type 2 diabetes mellitus with hyperglycemia; E11.22 Type 2 diabetes mellitus with diabetic chronic kidney disease; E78.5 Hyperlipidemia, unspecified; D53.9 Nutritional anemia, unspecified; Z66 Do not resuscitate; D69.6 Thrombocytopenia, unspecified; I27.20 Pulmonary hypertension, unspecified; I44.7 Left bundle-branch block, unspecified; Z79.82 Long term (current) use of aspirin; Z79.4 Long term (current) use of insulin; Z82.49 Family history of ischemic heart disease and other diseases of the circulatory system; Z99.2 Dependence on renal dialysis; Z79.899 Other long term (current) drug therapy; Z86.73 Personal history of transient ischemic attack (TIA), and cerebral infarction without residual deficits; Z83.3 Family history of diabetes mellitus
CPT/HCPCS: 31500; 36415; 36573; 36600; 71045; 80048; 80061; 80076; 80320; 82375; 82550; 82805; 82962; 83036; 83605; 83735; 83880; 83970; 84100; 84145; 84439; 84443; 84484; 85014; 85018; 85025; 85049; 85384; 86705; 86709; 86850; 86900; 86920; 87340; 90935; 93005; 93306; 93970; 93971; 94002; 94003; 94070; 94664; 95816; 99291; C1725; J0610; J0692; J0885; J1650; J1815; J2003; J2704; J3490; J7030; J7060; J7121; P9016; G0480